=== PATIENT | female | born 1990 | race Caucasian/White ===

== ENCOUNTER 2018-08-05 09:07 | Emergency (ER) | payer OTHER, SELFPAY ==
[2018-08-05 09:15] VITALS: BP 113/83; PULSE 66; RESP 16; TEMP 36.8; O2SAT 100
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
== END 2018-08-05 09:31 | disposition home or self-care (01) ==
LOC: ED 09:34
PROVIDERS: Emergency Provider Emergency Medicine
DX: S41.152A Open bite of left upper arm, initial encounter (principal); Y04.1XXA Assault by human bite, initial encounter; Y99.0 Civilian activity done for income or pay
CPT/HCPCS: 99282

== ENCOUNTER → 2018-10-14 08:57 | Outpatient (CLI) | payer OTHER, SELFPAY ==
--- NOTE | 2018-10-14 08:58 | DI.US.S_ITS ---
LIMITED ULTRASOUND OF RIGHT BREAST AND AXILLA: 10/14/2018 CLINICAL: Palpable right breast lump and focal pain. Palpable right axilla lump. Comparison is made to exam dated: 10/14/2018 [facility]. Real-time and Doppler ultrasound of the right breast 12 o'clock, and axilla regions were performed. Ramos scale images of the real-time examination were reviewed. Targeted ultrasound was performed in the region of the patient's reported focal pain and palpable abnormality in the right breast at 12 o'clock position. No underlying breast mass or abnormality is identified. Dense fibroglandular tissue is identified. Targeted ultrasound was performed in the region of the patient's reported focal pain in the right axilla No underlying mass or abnormality is identified. No right axillary lymphadenopathy is identified. IMPRESSION: NEGATIVE 1) No ultrasound findings to explain patient's reported focal pain and palpable abnormality in the right breast at 12 o'clock position. Recommend clinical follow-up for further evaluation and management of the patient's reported symptoms. 2) No ultrasound findings to explain patient's reported focal pain in the right axilla. Recommend clinical follow-up for further evaluation and management of the patient's reported symptoms. 3) There is no sonographic evidence of malignancy in the imaged portions of the right breast and right axilla. Annual screening mammography beginning at age 40 is recommended, unless earlier high-risk screening is warranted due to individual patient risk factors for the development of breast malignancy. The patient is advised to monitor her breasts and to return sooner for re-evaluation should she feel anything grow or change. This exam was interpreted at Station ID: [id number]. Electronically Signed By: Burak Aldana M.D. ecl/:10/14/2018 15:23:39 letter sent: Clinical Evaluation Ultrasound BI-RADS: 1 Negative
--- NOTE | 2018-10-14 08:58 | DI.MG.S_ITS ---
BILATERAL DIGITAL DIAGNOSTIC MAMMOGRAM 3D/2D: 10/14/2018 CLINICAL: Baseline exam. Bilateral lumps and Right breast pain. No prior exams were available for comparison. The tissue of both breasts is extremely dense, which lowers the sensitivity of mammography. There is a triangular marker overlying the skin of the upper right breast at middle depth the site of the patient's reported palpable and painful abnormality. There is no underlying mammographic abnormality. There is also no underlying mammographic abnormality in the imaged portions of the right axilla to explain patient's reported right axillary pain. There are also two triangular markers overlying the skin of the upper outer left breast at middle depth at the site of the patient's reported palpable abnormalities in the left breast. There is no underlying mammographic abnormality at either site. IMPRESSION: INCOMPLETE: NEEDS ADDITIONAL IMAGING EVALUATION 1) No mammographic abnormality to correlate with the site of the patient's reported focal palpable and painful abnormality in the upper right breast at middle depth. Targeted diagnostic ultrasound recommended for further evaluation, which will be performed immediately following this exam. 2) No mammographic abnormality to correlate with the site of the patient's reported focal pain in the right axilla. Targeted diagnostic ultrasound recommended for further evaluation, which will be performed immediately following this exam. 3) No mammographic abnormalities to correlate with the sites of the patient's two reported focal palpable abnormalities in the upper outer left breast at middle depth. Targeted diagnostic ultrasound recommended for further evaluation, which will be performed immediately following this exam. This exam was interpreted at Station ID: [id number]. NOTE: For mammograms, a report in lay terms will be sent to the patient. Approximately 15% of breast malignancies will not be visualized mammographically. In the management of a palpable breast mass, a negative mammogram must not discourage biopsy of a clinically suspicious lesion. Electronically Signed By: Burak Aldana M.D. ecl/:10/14/2018 10:10:56 copy to: Elisabeth Rhodes letter sent: Additional Imaging Needed ACR BI-RADS Category 0: Incomplete [id number]
--- NOTE | 2018-10-14 12:54 | DI.US.S_ITS ---
LIMITED ULTRASOUND OF LEFT BREAST: 10/14/2018 CLINICAL: Palpable left breast lumps. [facility] Real[facility]time and Doppler ultrasound of the left breast upper outer quadrant were performed. Ramos scale images of the real-time examination were reviewed. Targeted ultrasound was performed in the region of the patient's reported two focal palpable abnormalities in the upper outer left breast. No underlying breast mass or abnormality is identified. Dense fibroglandular tissue is identified in the upper outer left breast. IMPRESSION: NEGATIVE 1) No ultrasound findings to explain patient's reported focal palpable abnormalities in the upper outer left breast. Recommend clinical follow-up for further evaluation and management of the patient's reported symptoms. 2) There is no sonographic evidence of malignancy in the imaged upper outer left breast. Annual screening mammography beginning at age 40 is recommended, unless earlier high-risk screening is warranted due to individual patient risk factors for the development of breast malignancy. The patient is advised to monitor her breasts and to return sooner for re-evaluation should she feel anything grow or change. This exam was interpreted at Station ID: [id number]. Electronically Signed By: Burak Aldana M.D. ecl/:10/14/2018 15:49:17 letter sent: Clinical Evaluation Ultrasound BI-RADS: 1 Negative
== END ==
PROVIDERS: PCP Internal Medicine; Visit Provider Physician Assistant
DX: R92.8 Other abnormal and inconclusive findings on diagnostic imaging of breast (principal); N64.4 Mastodynia; N63.10 Unspecified lump in the right breast, unspecified quadrant; N63.21 Unspecified lump in the left breast, upper outer quadrant
CPT/HCPCS: 76642; 77066; G0279

== ENCOUNTER → 2023-02-22 11:53 | Outpatient (CLI) | payer OTHER, SELFPAY ==
[2023-02-22 12:57] LABS: Add Manual Diff / Slide Review NO; Basophils Absolute Auto 0 /uL (0-100); Basophils Percent Auto 0.3 % (0-2); Eosinophils Absolute Auto 100 /uL (0-450); Eosinophils Percent Auto 0.8 % (2-4); Hematocrit 40.7 % (36-46); Hemoglobin 13.9 g/dL (12.0-16.0); Lymphocytes Absolute Auto 1800 /uL (1100-4500); Lymphocytes Percent Auto 13.7 % (25-40); Mean Corpuscular Hemoglobin 29.9 PG (26-34); Mean Corpuscular Volume 87.9 fL (80-100); Monocytes Absolute Auto 500 /uL (0-900); Monocytes Percent Auto 3.9 % (3-14); Neutrophils Absolute Auto 10500 /uL (1500-7000); Neutrophils Percent Auto 81.3 % (50-75); Platelet Count 322 X10^3/uL (150-400); Red Blood Cell Count 4.63 X10^6/uL (4.0-5.2); Red Cell Distribution Width 13.6 % (11.6-14.8); White Blood Cell Count 12.9 X10^3/uL (4.5-11.0)
[2023-02-22 17:38] LABS: Hepatitis B Surface Antigen NEGATIVE s/c (NEGATIVE); Rubella Antibody IgG 11.2 IU/mL (>15)
[2023-02-22 17:55] LABS: HIV 1 & 2 Ab/Ag 4th Gen Combo NEGATIVE (NEGATIVE); Hep C Virus Ab w/Reflex Quant NEGATIVE s/c (NEGATIVE)
[2023-02-23 08:52] LABS: Varicella IgG Antibody 1085 index (Immune >165)
[2023-02-24 09:18] LABS: RPR Screen Non Reactive (Non Reactive)
== END ==
PROVIDERS: Referring Provider Obstetrics & Gynecology; Visit Provider Obstetrics & Gynecology
DX: Z34.01 Encounter for supervision of normal first pregnancy, first trimester (principal)
CPT/HCPCS: 36415; 80055; 86787; 86803; 86850; 86900; 86901; 87086; 87389

== ENCOUNTER → 2023-03-02 13:54 | Outpatient (CLI) | payer OTHER, SELFPAY | PROVIDERS: Referring Provider Specialist; Visit Provider Specialist | DX: Z34.81 Encounter for supervision of other normal pregnancy, first trimester (principal) | CPT/HCPCS: 36415 ==

== ENCOUNTER → 2023-05-03 14:39 | Outpatient (CLI) | payer OTHER, SELFPAY ==
--- NOTE | 2023-05-03 14:40 | DI.US.S_ITS ---
PROCEDURE: US OB >= 14 WEEKS FETUS INDICATIONS: ANATOMY SCAN OUTSIDE/PRIOR DATING DATA: Last menstrual period (LMP): 12/06/22. LMP-based estimated date of delivery (SHEBA): 09/12/23. First dating scan (date and location): Not available. Estimated date of delivery (SHEBA) from first dating scan: Not applicable. The calculations are made using the working SHEBA of 09/12/23. TECHNIQUE: Real-time scanning was performed of the fetus, with image documentation and biometric measurements. Endovaginal scanning: Not performed COMPARISON: None. FINDINGS: General: A single living intrauterine gestation is present. Presentation: Breech Placenta: Placental position is anterior , without previa. Amniotic fluid index: 12.1 cm, normal range is 5-24 cm. Single deepest vertical pocket is 3.2 cm. heart rate: 149 beats per minute. Maternal cervical canal: Closed and 4.6 cm long. Normal lower limit is 2.5 cm. biometrics: Biparietal diameter: 4.9 cm, 21 weeks 0 days Head circumference: 19.1 cm, 21 weeks three days Abdominal circumference: 17.4 cm, 22 weeks two days Femur length: 3.7 cm, 21 weeks five days Clinically estimated gestational age: 21 weeks one day Composite gestational age from present scan: 21 weeks four days Estimated weight and percentile: 461 g, 84th percentile Anatomic survey: Neuro: The right lateral ventricle is at the upper limits of normal measuring 10 mm. The left lateral ventricle is less well seen, potentially also at the upper limits of normal measuring at least 8 mm. Cisterna magna is normal at 3-11 mm. Cerebellum is normal in size and morphology. Nuchal skin fold: Normal at less than 6 mm between 14-21 weeks gestational age. Face: Facial profile is relatively normal. Nose and lips were not well seen. Spine: No evidence for spina bifida. Heart: 4-chambered heart is present, with normal ventricular outflow tracts. Diaphragm: Diaphragm is intact. Stomach: Left-sided stomach is present. Kidneys: No hydronephrosis. Normal is less than 5 mm in 2nd trimester, less than 7 mm in 3rd trimester. Cord: Three vessels of the umbilical cord were not well seen. At least two are identified. Bladder: Normal in size. Extremities: All 4 extremities identified. IMPRESSION: 1. Single living intrauterine with appropriate growth. 2. Intracranial lateral ventricles at the upper limits of normal. Other intracranial structures appear within normal limits. 3. Facial features were not well seen. 4. Three vessel umbilical cord was not well delineated. 5. Recommend repeat ultrasound in one week to reassess above structures, and/or referral to Maternal Medicine. We strive to produce accurate, complete, and clear reports of imaging services. To assist us in improving patient care, this report was composed using standard report templates and voice recognition software. Therefore, it may contain abnormal punctuation, insertions and/or omissions. Occasional wrong-word or sound-alike substitutions may occur. Though we review the report and make efforts to correct it, we do recommend that the report be read carefully in proper context to recognize any text inaccuracies. Dictated by: Selena Alejandra M.D. on 05/03/2023 at 17:28 Approved by: Selena Alejandra M.D. on 05/03/2023 at 17:41
== END ==
PROVIDERS: Referring Provider Specialist; Visit Provider Specialist
DX: Z34.92 Encounter for supervision of normal pregnancy, unspecified, second trimester (principal); Z3A.21 21 weeks gestation of pregnancy
CPT/HCPCS: 76811

== ENCOUNTER → 2023-05-12 15:55 | Outpatient (CLI) | payer OTHER, SELFPAY ==
--- NOTE | 2023-05-12 15:56 | DI.US.S_ITS ---
PROCEDURE: US OB FOLLOW UP INDICATIONS: FOLLOW-UP OUTSIDE/PRIOR DATING DATA: Last menstrual period (LMP): 12/06/2022. LMP-based estimated date of delivery (SHEBA): 09/12/2023. First dating scan (date and location): NA. Estimated date of delivery (SHEBA) from first dating scan: NA. TECHNIQUE: Real-time scanning was performed of the fetus, with image documentation. COMPARISON: ultrasound 05/03/2023 FINDINGS: A single living intrauterine gestation is present. Presentation: Breech. Placenta: Placental position is anterior, without previa. Amniotic fluid index: 15.2 cm, normal range is 5-24 cm. Single deepest vertical pocket is 4.9 cm. heart rate: 147 beats per minute. Maternal cervical canal: 3.4 cm long. Normal lower limit is 2.5 cm. Clinically estimated gestational age: 22 weeks, 3 days Estimated gestational age from initial scan: Not applicable Limited anatomy demonstrates normal facial profile, and normal nose and lips. Normal three-vessel umbilical cord is visualized. The left lateral ventricle is at the upper limits of normal measuring 10 mm. The right lateral ventricle is within normal limits measuring 8 mm. IMPRESSION: 1. Single living intrauterine . 2. Normal facial features visualized. Left lateral ventricle is at the upper limits of normal in size measuring 10 mm, unchanged from prior. Right lateral ventricle is within normal limits. 3. Normal 3 vessel umbilical cord. Approved by: Ruchi Garza M.D. on 05/18/2023 at 0:16
== END ==
PROVIDERS: Referring Provider Obstetrics & Gynecology; Visit Provider Obstetrics & Gynecology
DX: Z34.92 Encounter for supervision of normal pregnancy, unspecified, second trimester (principal); Z3A.22 22 weeks gestation of pregnancy
CPT/HCPCS: 76816

== ENCOUNTER → 2023-06-14 07:51 | Outpatient (CLI) | payer OTHER, SELFPAY ==
--- NOTE | 2023-06-14 07:52 | DI.US.S_ITS ---
PROCEDURE: US OB FOLLOW UP INDICATIONS: Incomplete Anatomy scan OUTSIDE/PRIOR DATING DATA: Last menstrual period (LMP): 12/06/2022. LMP-based estimated date of delivery (SHEBA): 09/12/2023. First dating scan (date and location): Not available. TECHNIQUE: Real-time scanning was performed of the fetus, with image documentation and biometric measurements. COMPARISON: [facility], OB >= 14 WEEKS FETUS, 05/03/2023, 14:51. [facility], OB FOLLOW UP, 05/12/2023, 16:02. FINDINGS: General: A single living intrauterine gestation is present. Presentation: Vertex. Placenta: Placental position is anterior , without previa. Amniotic fluid index: 14.9 cm. Single deepest vertical pocket is 5.5 cm. heart rate: 149 beats per minute. Maternal cervical canal: 3.9 cm long. Normal lower limit is 2.5 cm. biometrics: Not performed Clinically estimated gestational age: 27 weeks 1 day Other: Note is made of prominent left ventricle, measuring 1.0 cm. The contralateral right ventricle measures 0.6 cm. IMPRESSION: 1. A single living intrauterine gestation redemonstrated. 2. Asymmetry in cerebral ventricles measuring 1.0 cm on the left and 0.6 cm on the right. We strive to produce accurate, complete, and clear reports of imaging services. To assist us in improving patient care, this report was composed using standard report templates and voice recognition software. Therefore, it may contain abnormal punctuation, insertions and/or omissions. Occasional wrong-word or sound-alike substitutions may occur. Though we review the report and make efforts to correct it, we do recommend that the report be read carefully in proper context to recognize any text inaccuracies. Dictated by: Shmuel Rayo M.D. on 06/14/2023 at 12:48 Approved by: Shmuel Rayo M.D. on 06/14/2023 at 12:51
[2023-06-14 10:17] LABS: Hematocrit 34.8 % (36-46)
[2023-06-14 10:41] LABS: GTT (PREG) 1 Hour PP 50gm Dose 83 mg/dL (76-139)
== END ==
PROVIDERS: Referring Provider Obstetrics & Gynecology; Visit Provider Obstetrics & Gynecology
DX: Z34.02 Encounter for supervision of normal first pregnancy, second trimester (principal); Z3A.27 27 weeks gestation of pregnancy
CPT/HCPCS: 36415; 76816; 82950; 85014; 85018